=== PATIENT | male | born 1970 | race Caucasian/White ===

== ENCOUNTER 2022-09-09 18:30 | Emergency (ER) | payer OTHER ==
[2022-09-09] MEDS ORDERED: methylPREDNISolone SOD SUCCI 125 MG/2 ML VIAL IV STA (18:32)
[2022-09-09] MEDS ORDERED: FAMOTIDINE 20 MG/2 ML VIAL IV STA (18:32)
[2022-09-09] MEDS ORDERED: IPRATROPIUM-ALBUTEROL 3 ML NEB INHALATION STA (18:32)
[2022-09-09 18:38] VITALS: BP 119/71; RESP 18; TEMP 98.1
[2022-09-09 18:54] VITALS: PULSE 79
--- NOTE | 2022-09-09 19:53 | ED ---
General Adult HPI - General Chief complaint: Allergic Reaction Stated complaint: allergic reaction Time Seen by Provider: 09/09/22 18:30 Source: patient, EMS, RN notes reviewed, old records reviewed Mode of arrival: EMS Limitations: no limitations - History of Present Illness Initial comments: This a 52-year-old male who presents emergency department with past medical history significant for an reflect reactions to bees. Patient states he was outside doing some work and he was stung today in the form and about 10 minutes later states started to swell up he became diaphoretic and short of breath and his throat was closing off. When EMS arrived they stated he was diaphoretic having hard time breathing he was drooling from the mouthwas completely swollen and erythematous. EMS states they administered Benadryl as well as epinephrine 0.5 and his symptoms almost completely resolved. Patient currently states he feels much better he has no shortness of breath or throat swelling at this time. Patient denies any chest pain or palpitations at any time. Patient denies any recent illness. Patient states he does have EpiPen's but he did not have one on him at the time. - Related Data Previous Rx's Medication Instructions Recorded EPINEPHrine (Auto Inject) [Epipen] 0.3 mg IM ONCE PRN #2 each 09/09/22 predniSONE [Deltasone] 40 mg PO DAILY #8 tab 09/09/22 Allergies Allergy/AdvReac Type Severity Reaction Status Date / Time bee venom protein (honey bee) Allergy Anaphylaxis Verified 09/09/22 18:39 Review of Systems ROS Statement: Those systems with pertinent positive or pertinent negative responses have been documented in the HPI. ROS Other: All systems not noted in ROS Statement are negative. Past Medical History Past Medical History: No Reported History History of Any Multi-Drug Resistant Organisms: None Reported Past Surgical History: Hernia Repair Past Psychological History: No Psychological Hx Reported Smoking Status: Current every day smoker Past Alcohol Use History: Daily Past Drug Use History: Marijuana General Exam - General Exam Comments Initial Comments: GENERAL: Patient is well-developed and well-nourished. Patient is nontoxic and well- hydrated and is in mild distress. ENT: Neck is soft and supple. No significant lymphadenopathy is noted. Oropharynx is clear. Moist mucous membranes. Neck has full range of motion without eliciting any pain. EYES: The sclera were anicteric and conjunctiva were pink and moist. Extraocular movements were intact and pupils were equal round and reactive to light. Eyelids were unremarkable. PULMONARY: Patient some slight expiratory wheezing CARDIOVASCULAR: There is a regular rate and rhythm without any murmurs gallops or rubs. ABDOMEN: Soft and nontender with normal bowel sounds. SKIN: Skin is clear with no lesions or rashes and otherwise unremarkable. NEUROLOGIC: Patient is alert and oriented x3. Cranial nerves II through XII are grossly intact. Motor and sensory are also intact. Normal speech, volume and content. Symmetrical smile. MUSCULOSKELETAL: Normal extremities with adequate strength and full range of motion. No lower extremity swelling or edema. No calf tenderness. LYMPHATICS: No significant lymphadenopathy is noted PSYCHIATRIC: Normal psychiatric evaluation. Limitations: no limitations Course Vital Signs 09/09/22 09/09/22 09/09/22 18:31 18:47 18:48 Temperature 98.1 F Pulse Rate 93 80 Respiratory 18 18 Rate Blood Pressure 119/71 O2 Sat by Pulse 95 Oximetry 09/09/22 18:54 Temperature Pulse Rate 79 Respiratory Rate Blood Pressure O2 Sat by Pulse Oximetry Medical Decision Making - Medical Decision Making Albuterol treatment Solu-Medrol and Pepcid emergency department. Patient's symptoms had completely resolved prior to arrival. I checked in on the patient on multiple occasions and he was in no distress and had no symptoms. Disposition Clinical Impression: Anaphylaxis Disposition: HOME SELF-CARE Condition: Good Instructions (If sedation given, give patient instructions): Anaphylaxis (ED) Additional Instructions: Patient can take Benadryl when necessary for any itching or hives but the patient as any difficulty breathing he has to come to the emergency department immediately. Prescriptions: predniSONE [Deltasone] 40 mg PO DAILY #8 tab EPINEPHrine (Auto Inject) [Epipen] 0.3 mg IM ONCE PRN #2 each PRN Reason: Difficulty breathing Is patient prescribed a controlled substance at d/c from ED?: No Referrals: Robert Johnson MD [Primary Care Provider] - 1-2 days Time of Disposition: 20:26
== END 2022-09-09 20:54 | disposition home or self-care (01) ==
LOC: EC 18:30
DX: T78.2XXA Anaphylactic shock, unspecified, initial encounter (principal); T63.441A Toxic effect of venom of bees, accidental (unintentional), initial encounter; F17.200 Nicotine dependence, unspecified, uncomplicated; F12.90 Cannabis use, unspecified, uncomplicated; Z91.030 Bee allergy status
CPT/HCPCS: 94640; 99284; 96374; 96375; J2930